=== PATIENT | male | born 1980 | race Caucasian/White ===

== ENCOUNTER 2024-08-14 22:24 | Emergency (ER) | payer OTHER ==
[2024-08-14 22:30] VITALS: BP 123/82; PULSE 67; RESP 18; TEMP 97.9; BMI 24.4
[2024-08-14] MEDS ORDERED: DIPHTH,PERTUSS(ACELL),TET 0.5 ML DISP.SYRIN IM ONE (22:50)
[2024-08-14] MEDS: DIPHTH,PERTUSS(ACELL),TET 0.5 ML DISP.SYRIN IM ONE (22:55)
== END 2024-08-14 23:06 | disposition home or self-care (01) ==
LOC: JERFT 22:24
PROC: 3E0234Z Introduction of Serum, Toxoid and Vaccine into Muscle, Percutaneous Approach (ICD-10-PCS; principal; 2024-08-14)
DX: S90.851A Superficial foreign body, right foot, initial encounter (principal); W45.0XXA Nail entering through skin, initial encounter; Y99.0 Civilian activity done for income or pay; Z23 Encounter for immunization
CPT/HCPCS: 90471; 90715; 99284-25